=== PATIENT | male | born 1960 | race Caucasian/White ===

== ENCOUNTER 2020-08-27 00:11 | Emergency (ER) | payer MEDICARE, SELFPAY ==
[2020-08-27 00:21] VITALS: BP 122/73; PULSE 63; RESP 16; TEMP 36.6; O2SAT 99
--- NOTE | 2020-08-27 00:31 | ECG_ITS ---
Measurements Intervals Effort Rate: 63 P: 79 NH: 206 QRS: 76 QRSD: 106 T: 54 QT: 419 QTc: 431 Interpretive Statements SINUS RHYTHM BASELINE WANDER- II, V6 NORMAL ECG Electronically Signed On 08-27-2020 8:29:17 [employer] by Josue Ferrer D.O.
[2020-08-27 01:04] LABS: Basophils Percent Auto 0.3 % (0.2-1.2); Eosinophils Absolute Auto 0.1 K/mm3 (0-0.3); Eosinophils Percent Auto 1.3 % (0-4.4); Hematocrit 43.5 % (42.0-52.0); Hemoglobin 14.5 g/dL (14.0-18.0); Immature Granulocyte Absolute 0.03 K/mm3 (0.00-0.031); Immature Granulocyte Percent A 0.3 % (0-0.5); Lymphocytes Absolute Auto 3.38 K/mm3 (0.9-3.2); Lymphocytes Percent Auto 31.5 % (18.3-44.2); Mean Corpuscular HGB Conc 33.3 g/dl (32-36); Mean Corpuscular Hemoglobin 30.6 pg (26-34); Mean Corpuscular Volume 91.8 fl (80-100); Mean Platelet Volume 9.9 fl (7.4-10.4); Monocytes Absolute Auto 0.7 K/mm3 (0.1-0.6); Monocytes Percent Auto 6.7 % (2.6-8.5); Neutrophils Absolute Auto 6.4 K/mm3 (1.3-6.7); Neutrophils Percent Auto 59.9 % (45.5-73.1); Platelet Count Result 227 k/mm3 (150-375); Red Blood Count 4.74 M/mm3 (4.6-6.20); Red Cell Distribution Width 14.4 % (11.5-14.5); White Blood Count 10.7 K/mm3 (4.5-10.0)
[2020-08-27 01:09] LABS: INR 0.9; Partial Thromboplastin Time 27.5 SECONDS (22.3-36.8); Prothrombin Time 13.1 Seconds (11.1-14.7)
[2020-08-27 01:11] LABS: Anion Gap 7 mmol/L (8-16); Blood Urea Nitrogen 14 mg/dL (9-20); Calcium 9.8 mg/dL (8.4-10.2); Carbon Dioxide 28 mmol/L (22-30); Chloride 104 mmol/L (98-107); Estimated CRCL calculation 111 ml/min; Estimated Glomerular Filt Rate > 60; Glucose 108 mg/dL (75-110); Potassium 4.3 mmol/L (3.4-5.0); Sodium 139 mmol/L (137-145)
[2020-08-27 01:23] LABS: Troponin I < 0.012 ng/mL (0.000-0.034)
[2020-08-27 02:48] VITALS: BP 101/54; PULSE 67; RESP 18
--- NOTE | 2020-08-27 03:30 | ED.GENADULT ---
HPI - General Adult General Chief complaint: Weakness Stated complaint: weakness Time Seen by Provider: 08/27/20 00:58 Source: patient Mode of arrival: EMS Limitations: no limitations History of Present Illness HPI narrative: This patient is a 59 year old male with history of hypertension who presents for evaluation of anxiety and chest pain. PAtient states he has been sneaking out of the house lately to get away from his girlfriend. He states tonight he was in the garage smoking, and he had an episode of anxiety and felt chest pain. He reports his chest pain lasted a few seconds. He denies his chest pain radiating or being worse with exertion. HE states he was having a panic attack. He denies diaphoresis or sob. He reports he has a mild smokers cough but denies any thing worse. He denies fever, chills, leg swelling or calf pain. He denies any chest pain . He states he does have history of stents in the past but denies exertional symptoms. Related Data Allergies Allergy/AdvReac Type Severity Reaction Status Date / Time morphine AdvReac Intermediate Rash Verified 08/27/20 00:27 Review of Systems Review of Systems: All systems reviewed & are unremarkable except as noted in HPI and below PMFSH Past Medical History Medical History (Updated 08/28/20 @ 00:00 by Background Daemon) CAD (coronary artery disease) Hypertension Surgical History Surgical History (Updated 08/27/20 @ 05:39 by Hina Baeza MD) H/O heart artery stent Social History Social History (Updated 08/27/20 @ 05:39 by Hina Baeza MD) Smoking packs per day: 1 Smoking cigarettes per day: 20.0 Smoking status: Current every day smoker Substance use: never Exam Const: General: no acute distress and alert Orientation/consciousness: patient oriented x3 HENMT: Head: normocephalic and atraumatic General nose exam: Normal external nose present and Normal nasal mucous membranes and turbinates present Face and sinus: face symmetric Mouth: Yes Normal oral and palatal mucosa present, Yes lip normal, Yes oropharynx normal and Yes moist mucous membranes Eyes: Pupils: Equal, round and reactive pupils present EOM: EOMs intact bilaterally Chest: Chest palpation & inspection: normal inspection of the chest Resp: Effort & Inspection: normal respiratory effort Auscultation: clear to auscultation bilaterally Cardio: Rate: regular rate Rhythm: regular rhythm Heart sounds: no murmurs GI: GI Palp: Yes Soft to palpation, No Tenderness to palpation present (GI), No Guarding due to palpation present (GI) and No Rigid due to palpation Auscultation: normal bowel sounds Skin: General skin exam: normal color Rashes: no rashes Neuro: General: patient oriented x3, moves all extremities and CN's II-XI intact bilaterally Course Reevaluation(s) Reevaluation #1: This patient presented with atypical symptoms and he is a heart score of 3. He denies any current chest pain. Will discharge home. Date: 08/27/20 Time: 05:40 Vital Signs Vital signs: Vital Signs Temperature 97.8 F 08/27/20 00:21 Pulse Rate 63 08/27/20 00:21 Respiratory Rate 16 08/27/20 00:21 Blood Pressure 122/73 08/27/20 00:21 Pulse Oximetry 99 08/27/20 00:21 Temperature 97.8 F 08/27/20 00:21 Pulse Rate 64 08/27/20 06:09 Respiratory Rate 16 08/27/20 06:09 Blood Pressure 102/67 08/27/20 06:09 Pulse Oximetry 98 08/27/20 06:09 Medical Decision Making Vital Signs Vital Signs: Vital Signs Temperature 97.8 F 08/27/20 00:21 Pulse Rate 63 08/27/20 00:21 Respiratory Rate 16 08/27/20 00:21 Blood Pressure 122/73 08/27/20 00:21 Pulse Oximetry 99 08/27/20 00:21 Temperature 97.8 F 08/27/20 00:21 Pulse Rate 64 08/27/20 06:09 Respiratory Rate 16 08/27/20 06:09 Blood Pressure 102/67 08/27/20 06:09 Pulse Oximetry 98 08/27/20 06:09 Lab Data Lab results reviewed: Yes I reviewed the patient's lab results.
[2020-08-27 04:40] VITALS: BP 114/63; PULSE 58; RESP 18; O2SAT 100
[2020-08-27 04:49] LABS: Add Urine Microscopic? YES; Appearance Urine Clear (Clear); Bilirubin Urine Negative (Negative); Blood Urine Negative (Negative); Color Urine Yellow (Yellow); Glucose Urine UA Negative (Negative); Ketones Urine Negative (Negative); Leukocyte Esterase Ur Negative LEU/UL (Negative); Mucus Urine Rare /lpf; Nitrate Urine Negative (Negative); Protein Urine Negative (Negative); RBC Urine 0-2 /hpf (0-2); Specific Grav Ur 1.013 (1.001-1.035); WBC Urine 0-3 /hpf
[2020-08-27 05:03] LABS: Troponin I < 0.012 ng/mL (0.000-0.034)
[2020-08-27 06:09] VITALS: BP 102/67; PULSE 64; RESP 16; O2SAT 98
== END 2020-08-27 06:13 | disposition home or self-care (01) ==
PROVIDERS: Emergency Provider General Practice
DX: R07.89 Other chest pain (principal); I25.10 Atherosclerotic heart disease of native coronary artery without angina pectoris; I10 Essential (primary) hypertension; Z95.5 Presence of coronary angioplasty implant and graft; F17.210 Nicotine dependence, cigarettes, uncomplicated
CPT/HCPCS: 36415; 80048; 81001; 84484; 85025; 85610; 85730; 93005; 99284